=== PATIENT | male | born 1970 | race Caucasian/White ===

== ENCOUNTER 2019-09-24 09:41 | Day surgery (SDC) | payer BC ==
[2019-09-23 15:56] LABS: BASOPHILS # (AUTO) 0.1 X10'3 (0-0.2); BASOPHILS % (AUTO) 0.4 % (0-1); EOSINOPHILS # (AUTO) 0.3 X10'3 (0-0.9); EOSINOPHILS % (AUTO) 2.5 % (0-6); HEMATOCRIT 44.5 % (42.0-52.0); HEMOGLOBIN 14.7 g/dl (14.0-17.9); LYMPHOCYTES # (AUTO) 3.7 X10'3 (1.1-4.8); LYMPHOCYTES % (AUTO) 28.5 % (21-51); MEAN CORPUSCULAR HEMOGLOBIN 29.1 PG (27.0-31.0); MEAN CORPUSCULAR HGB CONC 33.1 g/dL (33.0-36.5); MEAN PLATELET VOLUME 7.6 FL (7.4-10.4); MONOCYTES # (AUTO) 1.1 X10'3 (0-0.9); MONOCYTES % (AUTO) 8.3 % (2-12); NEUTROPHILS # (AUTO) 7.9 X10'3 (1.8-7.7); NEUTROPHILS % (AUTO) 60.3 % (42-75); PLATELET COUNT 403 X10'3 (140-440); RED BLOOD COUNT 5.06 X10'6 (4.70-6.10); RED CELL DISTRIBUTION WIDTH 14.2 % (11.5-14.5); WHITE BLOOD COUNT 13.1 X10'3 (4.5-11.0)
[2019-09-23 16:04] LABS: ALBUMIN 4.5 G/DL (3.4-5.0); ANION GAP 8 (8-16); BLOOD UREA NITROGEN 18 MG/DL (7-18); BUN/CREATININE RATIO 20.2 (5.4-32.0); CALCIUM 9.3 MG/DL (8.5-10.1); CHLORIDE 103 MMOL/L (99-107); CREATININE 0.89 MG/DL (0.60-1.10); GLUCOSE 98 MG/DL (70-104); POTASSIUM 3.7 MMOL/L (3.5-5.1); SODIUM 139 MMOL/L (135-145); TOTAL CARBON DIOXIDE 28.3 MMOL/L (24-32); eGFR > 90 ML/MIN
[2019-09-23 16:08] LABS: PARTIAL THROMBOPLASTIN TIME 34 SECONDS (22-32)
[~2019-09-24] VITALS: Ht 177.8 cm; Wt 128.3 kg
[2019-09-24] VITALS (10 sets, daily range): BP systolic 107–145; BP diastolic 68–94
[2019-09-24] MEDS ORDERED: diphenhydrAMINE 25mg capsule PO PRN (10:00)
[2019-09-24] MEDS ORDERED: normal saline 1,000 ML IV SCH (10:00)
[2019-09-24] MEDS ORDERED: LORazepam 0.5 MG tablet PO PRN (10:00)
[2019-09-24] MEDS ORDERED: OXYC-511 PO (10:07)
[2019-09-24] MEDS ORDERED: LISI1TAB28 PO (10:07)
[2019-09-24] MEDS ORDERED: CARI-433 PO (10:07)
[2019-09-24] MEDS ORDERED: LIDOcaine/PRILOcaine 5gm cream TP ONE (10:30)
[2019-09-24] MEDS ORDERED: midazolam 2 mg/2 ml injection ONE (14:05)
[2019-09-24] MEDS ORDERED: iohexol 350MG/ML 100ml bottle IV ONE (14:06)
[2019-09-24] MEDS ORDERED: nitroGLYCERIN-Tridil 50MG/D5W 250 ML IV ONE (14:06)
[2019-09-24] MEDS ORDERED: heparin 1,000 UNITS/NS 500ml 500 ML ONE ×2 (14:06→14:07)
[2019-09-24] MEDS ORDERED: iohexol 350 MG/ML 50ML vial IV ONE (14:06)
[2019-09-24] MEDS ORDERED: heparin 1,000unit/ml 10ml vial 10 ML ONE (14:06)
[2019-09-24] MEDS ORDERED: fentaNYL/PF 50MCG/1 ML 2ML syringe ONE (14:06)
[2019-09-24] MEDS ORDERED: LIDOcaine 1% (10mg/ml)w/preservative injection 20ml MDV ONE (14:06)
[2019-09-24 15:30] LABS: ISTAT HGB ART 14.6 g/dl (14.0-18.0); ISTAT Hct ART 43 %PCV (42-52); ISTAT O2 SATURATION ARTERIAL 97 % (95-98); ISTAT SOURCE ART
== END 2019-09-24 20:00 | disposition home or self-care (01) ==
LOC: SSTAY O 09:41
PROVIDERS: ATTEND Internal Medicine Cardiovascular Disease
DX: I35.0 Nonrheumatic aortic (valve) stenosis (principal); I25.10 Atherosclerotic heart disease of native coronary artery without angina pectoris; I10 Essential (primary) hypertension; E78.5 Hyperlipidemia, unspecified; I34.9 Nonrheumatic mitral valve disorder, unspecified; I70.0 Atherosclerosis of aorta; Z79.899 Other long term (current) drug therapy; Z98.890 Other specified postprocedural states; F17.210 Nicotine dependence, cigarettes, uncomplicated; Z72.89 Other problems related to lifestyle; Z80.51 Family history of malignant neoplasm of kidney; Z79.01 Long term (current) use of anticoagulants
CPT/HCPCS: 36415; 76937; 80048; 82803; 85014; 85025; 85610; 85730; 93005; 93460; 93567; 99152; 99153; C1760; C1769; J1644; J2001; J2250; J3010; J7030; Q0163; Q9967; A4620; A6258; C1751; J3490

== ENCOUNTER 2020-06-16 08:53 | Day surgery (SDC) | payer BC ==
[2020-06-15 16:25] LABS: BASOPHILS # (AUTO) 0.1 X10'3 (0-0.2); EOSINOPHILS # (AUTO) 0.3 X10'3 (0-0.9); EOSINOPHILS % (AUTO) 2.6 % (0-6); HEMATOCRIT 43.6 % (42.0-52.0); HEMOGLOBIN 14.6 g/dl (14.0-17.9); LYMPHOCYTES # (AUTO) 3.6 X10'3 (1.1-4.8); LYMPHOCYTES % (AUTO) 31.3 % (21-51); MEAN CORPUSCULAR HEMOGLOBIN 29.5 PG (27.0-31.0); MEAN CORPUSCULAR HGB CONC 33.4 g/dL (33.0-36.5); MEAN CORPUSCULAR VOLUME 88.5 FL (78-98); MEAN PLATELET VOLUME 7.4 FL (7.4-10.4); MONOCYTES # (AUTO) 0.9 X10'3 (0-0.9); NEUTROPHILS # (AUTO) 6.6 X10'3 (1.8-7.7); NEUTROPHILS % (AUTO) 57.1 % (42-75); PLATELET COUNT 377 X10'3 (140-440); RED BLOOD COUNT 4.93 X10'6 (4.70-6.10); WHITE BLOOD COUNT 11.6 X10'3 (4.5-11.0)
[2020-06-15 16:33] LABS: ALBUMIN 4.6 G/DL (3.4-5.0); ANION GAP 10 (8-16); BLOOD UREA NITROGEN 17 MG/DL (7-18); BUN/CREATININE RATIO 24.3 (5.4-32.0); CALCIUM 10.4 MG/DL (8.5-10.1); CHLORIDE 102 MMOL/L (99-107); GLUCOSE 89 MG/DL (70-104); POTASSIUM 3.9 MMOL/L (3.5-5.1); SODIUM 140 MMOL/L (135-145); TOTAL CARBON DIOXIDE 28.5 MMOL/L (24-32); eGFR > 90 ML/MIN
[2020-06-15 16:36] LABS: PARTIAL THROMBOPLASTIN TIME 35 SECONDS (22-32)
[~2020-06-16] VITALS: Ht 177.8 cm; Wt 133.1 kg
[2020-06-16] VITALS (11 sets, daily range): BP systolic 99–130; BP diastolic 58–80
[~2020-06-16 08:53] MED LIST: CARI-433 PO; LISI1TAB51 PO; OXYC1TAB17 PO
[2020-06-16] MEDS ORDERED: normal saline 1,000 ML IV SCH (09:20)
[2020-06-16] MEDS ORDERED: diphenhydrAMINE 25mg capsule PO PRN (09:20)
[2020-06-16] MEDS ORDERED: LORazepam 0.5 MG tablet PO PRN (09:20)
[2020-06-16] MEDS ORDERED: LIDOcaine/PRILOcaine 5gm cream TP ONE (09:20)
[2020-06-16] MEDS ORDERED: HYDR-3972 PO (10:33)
[2020-06-16] MEDS ORDERED: SILD50TA PO (10:33)
[2020-06-16] MEDS ORDERED: midazolam 1 mg/ML 2ml injection ONE (11:00)
[2020-06-16] MEDS ORDERED: LIDOcaine 1% (10mg/ml)w/preservative injection 20ml MDV ONE (11:00)
[2020-06-16] MEDS ORDERED: verapamil 2.5 mg/ml inj IV ONE (11:00)
[2020-06-16] MEDS ORDERED: iohexol 350 MG/ML 50ML vial IV ONE (11:00)
[2020-06-16] MEDS ORDERED: iohexol 350MG/ML 100ml bottle IV ONE (11:00)
[2020-06-16] MEDS ORDERED: heparin 1,000unit/ml 10ml vial 10 ML ONE (11:00)
[2020-06-16] MEDS ORDERED: nitroGLYCERIN-Tridil 50MG/D5W 250 ML IV ONE (11:00)
[2020-06-16] MEDS ORDERED: fentaNYL/PF 50MCG/1 ML 2ML syringe ONE (11:00)
[2020-06-16] MEDS ORDERED: pneumococcal 23-VAL P-sac vacc 25 mcg/0.5ml vial IMVAC ONE (12:00)
[2020-06-16 12:03] LABS: ISTAT Hct ART 44 %PCV (42-52); ISTAT O2 SATURATION ARTERIAL 97 % (95-98); ISTAT SOURCE ART
== END 2020-06-16 17:15 | disposition home or self-care (01) ==
LOC: SSTAY O 08:53
PROVIDERS: ATTEND Internal Medicine Cardiovascular Disease
DX: R53.83 Other fatigue (principal); R06.02 Shortness of breath; I25.10 Atherosclerotic heart disease of native coronary artery without angina pectoris; I08.0 Rheumatic disorders of both mitral and aortic valves; I10 Essential (primary) hypertension; E78.5 Hyperlipidemia, unspecified; G47.30 Sleep apnea, unspecified; E66.9 Obesity, unspecified; Z68.41 Body mass index [BMI] 40.0-44.9, adult; Z79.899 Other long term (current) drug therapy; Z98.890 Other specified postprocedural states; Z87.891 Personal history of nicotine dependence; Z72.89 Other problems related to lifestyle; Z80.51 Family history of malignant neoplasm of kidney
CPT/HCPCS: 36415; 76937; 80048; 82803; 82948; 85014; 85025; 85610; 85730; 93005; 93460; 99152; 99153; C1769; C1894; J1644; J2001; J2250; J3010; J7030; Q0163; Q9967; A4620; A6258; C1751; J3490

== ENCOUNTER 2020-09-27 05:36 | Inpatient (IN) | payer BC ==
[2020-09-20 14:41] LABS: BASOPHILS # (AUTO) 0.1 X10'3 (0-0.2); BASOPHILS % (AUTO) 0.6 % (0-1); EOSINOPHILS # (AUTO) 0.3 X10'3 (0-0.9); LYMPHOCYTES # (AUTO) 3.9 X10'3 (1.1-4.8); LYMPHOCYTES % (AUTO) 37.4 % (21-51); MEAN CORPUSCULAR HEMOGLOBIN 29.3 PG (27.0-31.0); MEAN CORPUSCULAR HGB CONC 33.6 g/dL (33.0-36.5); MEAN CORPUSCULAR VOLUME 87.2 FL (78-98); MEAN PLATELET VOLUME 7.2 FL (7.4-10.4); MONOCYTES # (AUTO) 0.7 X10'3 (0-0.9); MONOCYTES % (AUTO) 7.1 % (2-12); NEUTROPHILS # (AUTO) 5.4 X10'3 (1.8-7.7); NEUTROPHILS % (AUTO) 51.9 % (42-75); PRE OP HEMATOCRIT 44.6 % (42.0-52.0); PRE OP PLATELET COUNT 403 X10'3 (140-440); RED BLOOD COUNT 5.11 X10'6 (4.70-6.10); RED CELL DISTRIBUTION WIDTH 13.5 % (11.5-14.5)
[2020-09-20 14:45] LABS: PRE OP PROTIME 10.6 SECONDS (9.0-12.0)
[2020-09-20 14:50] LABS: CLARITY,URINE CLEAR (Clear); COLOR,URINE STRAW (Yellow); GLUCOSE, URINE NEGATIVE (Neg); KETONES,URINE NEGATIVE (Neg); LEUKOCYTE ESTERASE ,URINE NEGATIVE (Neg); NITRITES, URINE NEGATIVE (Neg); OCCULT BLOOD,URINE LARGE (Neg); PROTEIN,URINE NEGATIVE (Neg); UROBILINOGEN,URINE 0.2 E.U/dL (0.2-1.0)
[2020-09-20 14:54] LABS: HEMOGLOBIN A1C 5.8 % (4.5-6.2)
[2020-09-20 14:57] LABS: ALBUMIN 4.3 G/DL (3.4-5.0); ALBUMIN/GLOBULIN RATIO 1.3 (1.1-1.5); ALKALINE PHOSPHATASE 53 IU/L (46-116); BLOOD UREA NITROGEN 14 MG/DL (7-18); BUN/CREATININE RATIO 17.7 (5.4-32.0); CALCIUM 9.2 MG/DL (8.5-10.1); CHLORIDE 102 MMOL/L (99-107); CREATININE 0.79 MG/DL (0.60-1.10); PRE OP ANION GAP 10 (8-16); PRE OP AST 54 U/L (10-37); PRE OP BILIRUB, TOTAL 0.2 MG/DL (0.0-1.0); PRE OP GLUCOSE 93 MG/DL (70-104); PRE OP POTASSIUM 4.1 MMOL/L (3.4-5.1); PRE OP SODIUM 138 MMOL/L (135-145); TOTAL CARBON DIOXIDE 26.5 MMOL/L (24-32); TOTAL PROTEIN 7.7 G/DL (6.4-8.2); eGFR > 90 ML/MIN
[2020-09-20 15:00] LABS: PRE OP ALT 94 U/L (30-65)
[2020-09-20 15:01] LABS: UA COLLECTION TYPE NON-SPECIFIED
[2020-09-20 15:04] LABS: MUCUS STRANDS FEW /LPF (Neg); SQUAMOUS EPITHELIAL CELL,UR FEW /LPF (FEW); WBC,URINE 0-4 /HPF (0-4)
[2020-09-20 15:06] LABS: BACTERIA,URINE FEW /HPF (Neg)
[2020-09-20 16:37] LABS: ABG BASE EXCESS -0.9 mmol/L (-2.0-2.0); ABG HCO3 23.6 mmol/L (22.0-26.0); ABG OXYGEN SATURATION 96.5 % (94-97); ABG PCO2 (T) 39.1 mmHg (35.0-48.0); ABG PO2 (T) 82.1 mmHg (75.0-100.0); ALLEN'S TEST POSITIVE; FCOHb 0.4 % (0.0-3.9); FMetHb 0.2 % (0.0-1.5); FO2Hb 95.9 % (94-97); TOTAL HEMOGLOBIN 15.5 G/dl (14.0-18.0)
[2020-09-27] VITALS (17 sets, daily range): BP systolic 92–158; BP diastolic 48–91
[~2020-09-27] VITALS: Ht 177.8 cm; Wt 136.9 kg
[2020-09-27] MEDS: insulin regular, human inj. 100 UNITS in normal saline 100ml IV IV SCH ×2 (05:30→12:19)
[~2020-09-27 05:36] MED LIST changes: +HYDR-3972 PO; +IODIXANOL 320 MG/ML INFUS..BTL 100ML IV ONE; +IODIXANOL 320 MG/ML INFUS..BTL 50ML IV ONE; +LORazepam 2 mg/ml vial IV PRN; +MALTODEXTRIN/FRUCTOSE 0.68 KCAL/ML LIQUID 296ML BOTTLE PO ONE; +OMEG-133 PO; -OXYC1TAB17 PO; +RED600TA PO; +SILD50TA PO; +TUMERIC PO; +UBID200C18 PO; +albuterol 2.5 MG/3 ML nebule NEB ONE; +ceFAZolin 1000mg inj ONE; +ceFAZolin inj. 3,000 MG in normal saline 100ml IV soln 100 ML IV ONE; +dextrose 50%-water 50ml dispensing syringe IV PRN; +famotidine/PF 10 mg/ml inj IV ONE; +gabapentin 400mg capsule PO ONE; +metoprolol tartrate 12.5mg (1/2 tablet) PO ONE; +mupirocin 2% nasal ointment 1gm UD NS ONE; +ringers solution, lacted 1,000 ML IV SCH; +vancomycin 1,500 MG in NS 300ml IV soln IV ONE
[2020-09-27] MEDS ORDERED: potassium Cl 2 mEq/ml inj IV ONE ×2 (07:00→08:00)
[2020-09-27] MEDS ORDERED: methylPREDNISolone sod succ 1000mg vial ONE ×2 (07:00→08:00)
[2020-09-27] MEDS ORDERED: heparin 1,000 units/ml 10ml inj ONE ×2 (07:00→08:00)
[2020-09-27] MEDS ORDERED: aminocaproic acid 250 MG/1 ML inj. ONE ×2 (07:00→08:00)
[2020-09-27] MEDS ORDERED: sodium bicarbonate (8.4%) 1 mEq/ml syringe ONE ×2 (07:00→08:00)
[2020-09-27] MEDS ORDERED: heparin 10,000 units/1 ML INJ ONE ×2 (07:00→08:00)
[2020-09-27] MEDS ORDERED: NORepinephrine 1 mg/ml inj IV ONE ×2 (07:00→08:00)
[2020-09-27] MEDS ORDERED: MAGNESIUM SULFATE 4 MEQ/ML (5gm/10ml) injection ONE (07:00)
[2020-09-27] MEDS ORDERED: LIDOcaine 2% (20 mg/ml) 5ml cardiac syringe ONE ×2 (07:00→08:00)
[2020-09-27] MEDS ORDERED: albumin (human) 25% 100 ML IV solution IV ONE ×2 (07:00→08:00)
[2020-09-27] MEDS ORDERED: calcium chloride 100 MG/1 ML inj IV ONE ×2 (07:00→08:00)
[2020-09-27] MEDS ORDERED: MIDAZolam 1 MG/ML 5ML VIAL ONE (07:01)
[2020-09-27] MEDS ORDERED: SUFENTANIL CITRATE 50 MCG/ML 2ml ampule IV ONE (07:01)
[2020-09-27] MEDS ORDERED: propofol inj 20 ML IV ONE (07:01)
[2020-09-27] MEDS ORDERED: rocuronium 10mg/ml inj IV ONE ×3 (07:02→07:19)
[2020-09-27] MEDS ORDERED: gabapentin 400mg capsule PO ONE (07:05)
[2020-09-27] MEDS ORDERED: ePHEDrine 50MG/ML INJ. ONE (07:09)
[2020-09-27] MEDS ORDERED: famotidine 20mg tablet ONE (07:18)
[2020-09-27] MEDS ORDERED: protamine sulf. 10mg/ml inj. IV ONE (07:19)
[2020-09-27] MEDS ORDERED: sevoflurane 250ml liquid IH ONE (07:19)
[2020-09-27 08:07] LABS: ABG BASE EXCESS -1.6 mmol/L (-2.0-2.0); ABG HCO3 24.5 mmol/L (22.0-26.0); ABG PCO2 46.7 mmHg (35.0-48.0); ABG PO2 94.1 mmHg (75.0-100.0); CL (ABG) 106 mmol/L (98-110); FCOHb 0.4 % (0.0-3.9); FMetHb 0.3 % (0.0-1.5); FO2Hb 96.3 % (94-97); GLUCOSE (ABG) 83 mg/dl (70-105); IONIZED CA (ABG) 1.17 mmol/L (1.10-1.43); K (ABG) 4.1 mmol/L (3.5-5.0); TOTAL HEMOGLOBIN 13.2 G/dl (14.0-18.0)
[2020-09-27 09:04] LABS: ABG BASE EXCESS -1.5 mmol/L (-2.0-2.0); ABG HCO3 25.1 mmol/L (22.0-26.0); ABG OXYGEN SATURATION 99.7 % (94-97); ABG PCO2 51.1 mmHg (35.0-48.0); ABG PO2 401.6 mmHg (75.0-100.0); CL (ABG) 106 mmol/L (98-110); FCOHb 0.3 % (0.0-3.9); FMetHb 0.3 % (0.0-1.5); FO2Hb 99.1 % (94-97); GLUCOSE (ABG) 99 mg/dl (70-105); IONIZED CA (ABG) 1.08 mmol/L (1.10-1.43); K (ABG) 5.2 mmol/L (3.5-5.0); TOTAL HEMOGLOBIN 10.8 G/dl (14.0-18.0)
[2020-09-27 09:11] LABS: ACT @ 1.70 U 332 SEC (193-297); ACT @ 2.84 U 476 SEC (260-420); BASELINE ACT 160 SEC (101-148)
[2020-09-27 09:12] LABS: ABG BASE EXCESS VENOUS -2.9 mmol/L (-2.0 - 2.0); ABG HCO3 VENOUS 23.2 mmol/L (21.0-28.0); ABG PCO2 VENOUS 45.9 mmHg (41.0-54.0); ABG PO2 VENOUS 44.2 mmHg (25.0-35.0); CL (ABG) 106 mmol/L (98-110); FCOHb VENOUS 0.2 %; FHHb VENOUS 22.2 %; FMetHb VENOUS 0.3 % (0.0 - 0.5); FO2Hb VENOUS 77.3 %; GLUCOSE (ABG) 103 mg/dl (70-105); IONIZED CA (ABG) 1.09 mmol/L (1.10-1.43); TOTAL HEMOGLOBIN 10.9 G/dl (14.0-18.0)
[2020-09-27 09:44] LABS: ABG HCO3 22.6 mmol/L (22.0-26.0); ABG OXYGEN SATURATION 99.5 % (94-97); ABG PCO2 37.9 mmHg (35.0-48.0); ABG PO2 353.3 mmHg (75.0-100.0); CL (ABG) 107 mmol/L (98-110); FCOHb 0.3 % (0.0-3.9); FMetHb 0.3 % (0.0-1.5); FO2Hb 98.9 % (94-97); GLUCOSE (ABG) 120 mg/dl (70-105); IONIZED CA (ABG) 1.08 mmol/L (1.10-1.43); K (ABG) 4.6 mmol/L (3.5-5.0); TOTAL HEMOGLOBIN 10.9 G/dl (14.0-18.0)
[2020-09-27 10:05] LABS: ABG BASE EXCESS -2.3 mmol/L (-2.0-2.0); ABG HCO3 22.1 mmol/L (22.0-26.0); ABG OXYGEN SATURATION 99.6 % (94-97); ABG PCO2 36.8 mmHg (35.0-48.0); ABG PO2 451.5 mmHg (75.0-100.0); CL (ABG) 108 mmol/L (98-110); FCOHb 0.3 % (0.0-3.9); FMetHb 0.3 % (0.0-1.5); GLUCOSE (ABG) 132 mg/dl (70-105); IONIZED CA (ABG) 1.07 mmol/L (1.10-1.43); K (ABG) 4.6 mmol/L (3.5-5.0); TOTAL HEMOGLOBIN 10.9 G/dl (14.0-18.0)
[2020-09-27 10:37] LABS: ABG BASE EXCESS -1.8 mmol/L (-2.0-2.0); ABG HCO3 24.6 mmol/L (22.0-26.0); ABG OXYGEN SATURATION 81.1 % (94-97); ABG PCO2 49.7 mmHg (35.0-48.0); CL (ABG) 108 mmol/L (98-110); FCOHb 0.5 % (0.0-3.9); FMetHb 0.3 % (0.0-1.5); FO2Hb 80.5 % (94-97); GLUCOSE (ABG) 120 mg/dl (70-105); IONIZED CA (ABG) 1.21 mmol/L (1.10-1.43); K (ABG) 4.5 mmol/L (3.5-5.0); TOTAL HEMOGLOBIN 10.5 G/dl (14.0-18.0)
[2020-09-27 10:40] LABS: ACTIVATED CLOTTING TIME 122 SEC (101-148)
[2020-09-27] MEDS ORDERED: sodium phosphate inj. 15 MMOL in dextrose 5%-water 250 ML IV PRN (11:15)
[2020-09-27] MEDS ORDERED: Insulin Reg/NS 100units/100mL 100 ML IV SCH (11:15)
[2020-09-27] MEDS ORDERED: potassium Cl 20 mEq SR tablet PO PRN (11:15)
[2020-09-27] MEDS ORDERED: pantoprazole 40 MG vial IV ONE (11:15)
[2020-09-27] MEDS ORDERED: magnesium 4gm in 100ml NS 100 ML IV PRN (11:15)
[2020-09-27] MEDS ORDERED: potassium CL 10mEq/100ml bag 100 ML IV PRN (11:15)
[2020-09-27] MEDS ORDERED: magnesium citrate 296ml oral solution PO PRN (11:15)
[2020-09-27] MEDS ORDERED: mineral oil 133ml enema RC PRN (11:15)
[2020-09-27] MEDS ORDERED: magnesium 2GM in 50ml NS 50 ML IV PRN (11:15)
[2020-09-27] MEDS ORDERED: insulin glargine (Lantus) pen - multi-dose SQ PRN (11:15)
[2020-09-27] MEDS ORDERED: dextrose 50%-water 50ml dispensing syringe IV PRN (11:15)
[2020-09-27] MEDS ORDERED: normal saline 250ml IV soln 250 ML IV PRN (11:15)
[2020-09-27] MEDS ORDERED: potassium Cl 20mEq/100mL bag 100 ML IV PRN (11:15)
[2020-09-27] MEDS ORDERED: metoclopramide 5 mg/ml inj IV PRN (11:15)
[2020-09-27] MEDS ORDERED: DOPamine 400mg/D5W 250ml 250 ML IV PRN (11:15)
[2020-09-27] MEDS ORDERED: ondansetron/PF 4mg/2ml inj IV PRN (11:15)
[2020-09-27] MEDS ORDERED: magnesium hydroxide 30ml (MOM) UD suspension PO PRN (11:15)
[2020-09-27] MEDS ORDERED: niCARDipine-NS 40mg/200ml IVPB 200 ML IV PRN (11:15)
[2020-09-27] MEDS ORDERED: acetaminophen 325mg tablet PO PRN ×2 (11:15)
[2020-09-27] MEDS ORDERED: sodium phosphate inj. 30 MMOL in dextrose 5%-water 250 ML IV PRN (11:15)
[2020-09-27] MEDS ORDERED: bisacodyl 10mg suppository rectal RC PRN (11:15)
[2020-09-27] MEDS ORDERED: potassium Cl 40MEQ/1/2NS 520ml 520 ML IV PRN (11:15)
[2020-09-27] MEDS ORDERED: Neutra Phos packet PO PRN (11:15)
[2020-09-27] MEDS ORDERED: morphine 4 MG/ML inj SYRINge IV PRN (11:15)
[2020-09-27] MEDS ORDERED: nitroGLYCERIN-Tridil 50MG/D5W 250 ML IV PRN (11:15)
[2020-09-27] MEDS ORDERED: potassium Cl 40MEQ/250ML bag 250 ML IV PRN (11:15)
[2020-09-27] MEDS ORDERED: fentaNYL/PF 50MCG/1 ML 2ML syringe ONE (11:27)
[2020-09-27 11:50] LABS: ABG BASE EXCESS -5.6 mmol/L (-2.0-2.0); ABG HCO3 21.6 mmol/L (22.0-26.0); ABG OXYGEN SATURATION 96.7 % (94-97); ABG PCO2 (T) 48.6 mmHg (35.0-48.0); ABG PO2 (T) 101.1 mmHg (75.0-100.0); FCOHb 0.5 % (0.0-3.9); FMetHb 0.3 % (0.0-1.5); FO2Hb 95.9 % (94-97); PATIENT TEMPERATURE 37.2; PEEP 5 cm H2O; RESPIRATORY RATE 14 b/min; TIDAL VOLUME 600 mL; TOTAL HEMOGLOBIN 14.9 G/dl (14.0-18.0)
[2020-09-27] MEDS: morphine 4 MG/ML inj SYRINge IV PRN ×4 (12:03→18:53)
[2020-09-27 12:20] LABS: ALANINE AMINOTRANSFERASE 56 U/L (12-78); ALBUMIN/GLOBULIN RATIO 1.5 (1.1-1.5); ALKALINE PHOSPHATASE 34 IU/L (46-116); ANION GAP 8 (8-16); ASPARTATE AMINO TRANSFERASE 58 U/L (10-37); BILIRUBIN,TOTAL 0.4 MG/DL (0.1-1.0); BLOOD UREA NITROGEN 15 MG/DL (7-18); CALCIUM 7.9 MG/DL (8.5-10.1); CHLORIDE 111 MMOL/L (99-107); CREATININE 0.88 MG/DL (0.60-1.10); GLUCOSE 145 MG/DL (70-104); MAGNESIUM 3.3 MG/DL (1.5-2.4); PARTIAL THROMBOPLASTIN TIME 26 SECONDS (22-32); PHOSPHORUS 3.7 MG/DL (2.3-4.5); SODIUM 144 MMOL/L (135-145); TOTAL CARBON DIOXIDE 24.6 MMOL/L (24-32); eGFR > 90 ML/MIN
[2020-09-27] MEDS ORDERED: nitroPRUSSIDE sod inj. 50 MG in dextrose 5%-water 248 ML IV SCH (12:20)
[2020-09-27 12:21] LABS: ABG BASE EXCESS -6.9 mmol/L (-2.0-2.0); ABG HCO3 20.8 mmol/L (22.0-26.0); ABG OXYGEN SATURATION 86.7 % (94-97); ABG PCO2 (T) 50.7 mmHg (35.0-48.0); ABG PO2 (T) 59.9 mmHg (75.0-100.0); FCOHb 0.7 % (0.0-3.9); FMetHb 0.2 % (0.0-1.5); FO2Hb 85.9 % (94-97); PATIENT TEMPERATURE 37.4; PEEP 10 cm H2O; RESPIRATORY RATE 16 b/min; TIDAL VOLUME 600 mL; TOTAL HEMOGLOBIN 15.3 G/dl (14.0-18.0)
[2020-09-27 12:21] LABS: POTASSIUM 4.6 MMOL/L (3.5-5.1)
[2020-09-27 12:22] LABS: BASOPHILS # (AUTO) 0.1 X10'3 (0-0.2); BASOPHILS % (AUTO) 0.3 % (0-1); EOSINOPHILS # (AUTO) 0.2 X10'3 (0-0.9); EOSINOPHILS % (AUTO) 0.8 % (0-6); HEMATOCRIT 42.6 % (42.0-52.0); LYMPHOCYTES # (AUTO) 2.3 X10'3 (1.1-4.8); LYMPHOCYTES % (AUTO) 10.5 % (21-51); MEAN CORPUSCULAR HEMOGLOBIN 29.2 PG (27.0-31.0); MEAN CORPUSCULAR HGB CONC 32.9 g/dL (33.0-36.5); MEAN CORPUSCULAR VOLUME 88.7 FL (78-98); MEAN PLATELET VOLUME 7.4 FL (7.4-10.4); MONOCYTES # (AUTO) 0.9 X10'3 (0-0.9); MONOCYTES % (AUTO) 4.1 % (2-12); NEUTROPHILS # (AUTO) 18.5 X10'3 (1.8-7.7); NEUTROPHILS % (AUTO) 84.3 % (42-75); PLATELET COUNT 209 X10'3 (140-440); RED CELL DISTRIBUTION WIDTH 13.8 % (11.5-14.5); WHITE BLOOD COUNT 21.9 X10'3 (4.5-11.0)
[2020-09-27] MEDS: sodium chloride 0.45% 1,000 ML IV SCH (12:30)
[2020-09-27] MEDS: nitroPRUSSIDE 0.2mg/mL in NS 250 ML IV SCH (12:39)
[2020-09-27] MEDS: gabapentin 300mg capsule PO SCH ×2 (12:45→20:04)
[2020-09-27] MEDS ORDERED: propofol 1000mg/100ml bottle 100 ML IV ONE (12:57)
[2020-09-27] MEDS: propofol 1000mg/100ml bottle 100 ML IV SCH ×3 (13:13→18:54)
--- NOTE | 2020-09-27 13:17 | NUR ---
Nutrition Consult: Pt s/p AVR and NELLY this admit; would benefit from high protein ed once stable post-op. Addendum: 09/27/20 at [address] Amended: Links added.
--- NOTE | 2020-09-27 13:19 | NUR ---
Received to room 2014 at 1130, accompanied by Jose D Moffett and PIEDAD Wallace and surgical crew. See assessment records. Renetta/PAline/CVPline and IVs noted in IV assessment records. All sites without redness or swelling. Vasoactive drugs infusing per Central Line. Bp elevated. Levo turned off per RN. Sp02 88. Pt. taken off vent and bagged. ABG obtained. Cardene started and then stopped as it could have causing low SP02. Nipride started. Propofol started as pt. is thrashing in bed and awake.
[2020-09-27] MEDS: albumin (Human) 5% 250ml 250 ML IV PRN ×3 (13:34→17:51)
[2020-09-27 14:31] LABS: ABG BASE EXCESS -8.5 mmol/L (-2.0-2.0); ABG HCO3 18.2 mmol/L (22.0-26.0); ABG OXYGEN SATURATION 99.4 % (94-97); ABG PCO2 (T) 42.2 mmHg (35.0-48.0); ABG PO2 (T) 289.1 mmHg (75.0-100.0); FCOHb 0.2 % (0.0-3.9); FMetHb 0.3 % (0.0-1.5); FO2Hb 98.9 % (94-97); PATIENT TEMPERATURE 37.4; RESPIRATORY RATE 16 b/min; TIDAL VOLUME 600 mL; TOTAL HEMOGLOBIN 13.7 G/dl (14.0-18.0)
[2020-09-27] MEDS: ceFAZolin/D5W- 1GM premix 50 ML IV SCH (15:54)
--- NOTE | 2020-09-27 16:45 | NUR ---
Pt. remains on Propofol until ready to wean off vent as he was thrashing around earlier. FI02 down to 70% from 100%. at bedside. VSS. Urine output WNL, CT output WNL.
--- NOTE | 2020-09-27 17:28 | NUR ---
Dr. Moffett called for update.
[2020-09-27 17:57] LABS: BASOPHILS % (AUTO) 0.1 % (0-1); EOSINOPHILS % (AUTO) 0.1 % (0-6); HEMATOCRIT 37.7 % (42.0-52.0); HEMOGLOBIN 12.4 g/dl (14.0-17.9); LYMPHOCYTES # (AUTO) 1.1 X10'3 (1.1-4.8); LYMPHOCYTES % (AUTO) 5.8 % (21-51); MEAN CORPUSCULAR HEMOGLOBIN 29.3 PG (27.0-31.0); MEAN CORPUSCULAR HGB CONC 32.8 g/dL (33.0-36.5); MEAN CORPUSCULAR VOLUME 89.1 FL (78-98); MEAN PLATELET VOLUME 7.3 FL (7.4-10.4); MONOCYTES # (AUTO) 0.9 X10'3 (0-0.9); MONOCYTES % (AUTO) 4.8 % (2-12); NEUTROPHILS # (AUTO) 16.1 X10'3 (1.8-7.7); NEUTROPHILS % (AUTO) 89.2 % (42-75); PLATELET COUNT 203 X10'3 (140-440); RED BLOOD COUNT 4.23 X10'6 (4.70-6.10); WHITE BLOOD COUNT 18.1 X10'3 (4.5-11.0)
--- NOTE | 2020-09-27 18:12 | NUR ---
Problems reprioritized. Patient report given, questions answered & plan of care reviewed with Jackie Antony RN.
[2020-09-27 18:14] LABS: ALBUMIN 3.4 G/DL (3.4-5.0); ANION GAP 11 (8-16); BLOOD UREA NITROGEN 19 MG/DL (7-18); BUN/CREATININE RATIO 17.9 (5.4-32.0); CALCIUM 7.4 MG/DL (8.5-10.1); CHLORIDE 112 MMOL/L (99-107); CREATININE 1.06 MG/DL (0.60-1.10); GLUCOSE 128 MG/DL (70-104); MAGNESIUM 2.9 MG/DL (1.5-2.4); PHOSPHORUS 5.1 MG/DL (2.3-4.5); POTASSIUM 5.1 MMOL/L (3.5-5.1); SODIUM 145 MMOL/L (135-145); TOTAL CARBON DIOXIDE 22.1 MMOL/L (24-32); eGFR 75 ML/MIN
--- NOTE | 2020-09-27 18:35 | NUR ---
I have received report and assumed care of pt. Pt resting in bed moments of agitation, opens eyes, moves all extremities, propofol in place titrating as needed to decrease agitation. Levophed in place to keep MAP greater then 60. Insulin drip in place for glucose control.
[2020-09-27] MEDS: NORepinephrine 8mg/ 250ml NS 250 ML IV SCH (19:49)
[2020-09-27] MEDS: sennosides/docusate sodium tablet PO SCH (20:03)
[2020-09-27] MEDS: vancomycin/NS 1 GM ADD-VANTAGE 250 ML IV SCH (20:03)
[2020-09-27] MEDS: mupirocin 2% nasal ointment 1gm UD NS SCH (20:04)
[2020-09-27] MEDS: atorvastatin 10mg tablet PO SCH (20:04)
--- NOTE | 2020-09-27 20:13 | NUR ---
spoke to Dr. Moffett regarding pt being agitated while on propofol, new orders received to titrate propofol off and start Precedex to keep a Rass 0 to -2, continue to wean ventilator in plan of extubation.
[2020-09-27] MEDS: dexmedetomidin/NS 400mcg/100ml 100 ML IV SCH (20:18)
--- NOTE | 2020-09-27 22:05 | NUR ---
HS cares complete, pt tolerated well.
[2020-09-28] VITALS (25 sets, daily range): BP systolic 95–185; BP diastolic 40–81
[2020-09-28] MEDS: ceFAZolin/D5W- 1GM premix 50 ML IV SCH ×4 (00:23→23:55)
[2020-09-28] MEDS: dexmedetomidin/NS 400mcg/100ml 100 ML IV SCH ×3 (00:23→18:23)
[2020-09-28] MEDS: morphine 4 MG/ML inj SYRINge IV PRN (00:24)
--- NOTE | 2020-09-28 01:14 | NUR ---
spontaneous breathing trial in place
[2020-09-28 02:10] LABS: ABG BASE EXCESS -4.3 mmol/L (-2.0-2.0); ABG OXYGEN SATURATION 95.6 % (94-97); ABG PCO2 (T) 30.7 mmHg (35.0-48.0); ABG PO2 (T) 78.7 mmHg (75.0-100.0); FCOHb 0.3 % (0.0-3.9); FMetHb 0.3 % (0.0-1.5); PATIENT TEMPERATURE 37.8; TIDAL VOLUME 840 mL; TOTAL HEMOGLOBIN 12.1 G/dl (14.0-18.0)
[2020-09-28 02:12] LABS: BASOPHILS % (AUTO) 0.3 % (0-1); EOSINOPHILS % (AUTO) 0 % (0-6); HEMATOCRIT 34.7 % (42.0-52.0); HEMOGLOBIN 11.6 g/dl (14.0-17.9); LYMPHOCYTES # (AUTO) 1.3 X10'3 (1.1-4.8); LYMPHOCYTES % (AUTO) 8.1 % (21-51); MEAN CORPUSCULAR HEMOGLOBIN 29.5 PG (27.0-31.0); MEAN CORPUSCULAR HGB CONC 33.4 g/dL (33.0-36.5); MEAN CORPUSCULAR VOLUME 88.2 FL (78-98); MEAN PLATELET VOLUME 7.5 FL (7.4-10.4); MONOCYTES # (AUTO) 1.4 X10'3 (0-0.9); MONOCYTES % (AUTO) 9.1 % (2-12); NEUTROPHILS # (AUTO) 12.8 X10'3 (1.8-7.7); NEUTROPHILS % (AUTO) 82.5 % (42-75); PLATELET COUNT 198 X10'3 (140-440); RED BLOOD COUNT 3.94 X10'6 (4.70-6.10); RED CELL DISTRIBUTION WIDTH 13.5 % (11.5-14.5); WHITE BLOOD COUNT 15.5 X10'3 (4.5-11.0)
[2020-09-28 02:26] LABS: PARTIAL THROMBOPLASTIN TIME 27 SECONDS (22-32)
[2020-09-28 02:28] LABS: ALANINE AMINOTRANSFERASE 51 U/L (12-78); ALBUMIN 3.5 G/DL (3.4-5.0); ALBUMIN/GLOBULIN RATIO 1.7 (1.1-1.5); ALKALINE PHOSPHATASE 39 IU/L (46-116); ANION GAP 14 (8-16); ASPARTATE AMINO TRANSFERASE 41 U/L (10-37); BILIRUBIN,TOTAL 0.4 MG/DL (0.1-1.0); BLOOD UREA NITROGEN 25 MG/DL (7-18); CALCIUM 7.5 MG/DL (8.5-10.1); CHLORIDE 110 MMOL/L (99-107); CREATININE 1.04 MG/DL (0.60-1.10); GLUCOSE 148 MG/DL (70-104); MAGNESIUM 2.5 MG/DL (1.5-2.4); PHOSPHORUS 3.7 MG/DL (2.3-4.5); POTASSIUM 4.4 MMOL/L (3.5-5.1); SODIUM 146 MMOL/L (135-145); TOTAL CARBON DIOXIDE 21.8 MMOL/L (24-32); TOTAL PROTEIN 5.6 G/DL (6.4-8.2); TRIGLYCERIDES 195 MG/DL (20-135); eGFR 77 ML/MIN
--- NOTE | 2020-09-28 04:25 | NUR ---
pt tolerated weaning paramitome, see respiratory assessment for details, pt medicated for pain as needed
[2020-09-28] MEDS: NORepinephrine 8mg/ 250ml NS 250 ML IV SCH ×2 (05:17→14:08)
[2020-09-28] MEDS: HYDROcodone/acetaminophen 10/325mg tab PO PRN ×5 (05:28→23:54)
--- NOTE | 2020-09-28 06:12 | NUR ---
Patient in room CICU 2013. I have received report from ANALIA RN and had the opportunity to ask questions and assume patient care.
--- NOTE | 2020-09-28 06:18 | NUR ---
report given to rec rn
[2020-09-28] MEDS ORDERED: glucagon, human recombinant 1mg kit SUBCUT PRN (06:45)
[2020-09-28] MEDS ORDERED: dextrose 50%-water 50ml dispensing syringe IV PRN ×2 (06:45)
[2020-09-28] MEDS ORDERED: insulin Lispro (HumaLOG) vial - multi-dose SQ SCH (06:45)
[2020-09-28] MEDS ORDERED: dextrose ORAL solution 15 GM/59 ML bottle PO PRN ×2 (06:45)
[2020-09-28] MEDS: aspirin 325mg tablet, delayed-release (Ecotrin) PO SCH (07:42)
[2020-09-28] MEDS: pantoprazole 40mg Tablet.DR PO SCH (07:42)
[2020-09-28] MEDS: vancomycin/NS 1 GM ADD-VANTAGE 250 ML IV SCH ×2 (07:42→20:57)
[2020-09-28] MEDS: metoprolol tartrate 12.5mg (1/2 tablet) PO SCH ×2 (07:43→19:21)
[2020-09-28] MEDS: gabapentin 300mg capsule PO SCH ×3 (07:43→20:57)
[2020-09-28] MEDS: sennosides/docusate sodium tablet PO SCH ×2 (07:44→20:57)
[2020-09-28] MEDS: mupirocin 2% nasal ointment 1gm UD NS SCH ×2 (07:46→20:57)
[2020-09-28] MEDS: insulin glargine (Lantus) pen - multi-dose SQ SCH (07:51)
--- NOTE | 2020-09-28 08:05 | NUR ---
Dr. Damian gave orders at bedside to remove ART and [place] lines. Art line removed
--- NOTE | 2020-09-28 09:55 | NUR ---
ZUNILDA blake by tie in hand Amy
--- NOTE | 2020-09-28 10:39 | NUR ---
patient observed using IS and flutter every hour while awake from 7- 1030
[2020-09-28] MEDS: nitroPRUSSIDE 0.2mg/mL in NS 250 ML IV SCH (13:31)
[2020-09-28] MEDS: insulin regular, human inj. 100 UNITS in normal saline 100ml IV IV SCH (14:08)
--- NOTE | 2020-09-28 18:08 | NUR ---
Problems reprioritized. Patient report given, questions answered & plan of care reviewed with ANALIA RN.
[2020-09-28] MEDS: atorvastatin 10mg tablet PO SCH (19:21)
[2020-09-29] VITALS (21 sets, daily range): BP systolic 102–146; BP diastolic 44–85
[2020-09-29] MEDS: NORepinephrine 8mg/ 250ml NS 250 ML IV SCH (01:21)
[2020-09-29] MEDS: dexmedetomidin/NS 400mcg/100ml 100 ML IV SCH (01:54)
[2020-09-29 03:10] LABS: BASOPHILS % (AUTO) 0.1 % (0-1); EOSINOPHILS % (AUTO) 0.1 % (0-6); HEMOGLOBIN 10.3 g/dl (14.0-17.9); LYMPHOCYTES # (AUTO) 2.7 X10'3 (1.1-4.8); LYMPHOCYTES % (AUTO) 13.9 % (21-51); MEAN CORPUSCULAR HEMOGLOBIN 29.5 PG (27.0-31.0); MEAN CORPUSCULAR HGB CONC 33.1 g/dL (33.0-36.5); MEAN CORPUSCULAR VOLUME 89.2 FL (78-98); MEAN PLATELET VOLUME 8.1 FL (7.4-10.4); MONOCYTES # (AUTO) 2.3 X10'3 (0-0.9); MONOCYTES % (AUTO) 11.9 % (2-12); NEUTROPHILS # (AUTO) 14.5 X10'3 (1.8-7.7); PLATELET COUNT 189 X10'3 (140-440); RED BLOOD COUNT 3.47 X10'6 (4.70-6.10); RED CELL DISTRIBUTION WIDTH 13.6 % (11.5-14.5); WHITE BLOOD COUNT 19.7 X10'3 (4.5-11.0)
[2020-09-29 03:32] LABS: ALBUMIN 3.4 G/DL (3.4-5.0); ANION GAP 7 (8-16); BLOOD UREA NITROGEN 17 MG/DL (7-18); BUN/CREATININE RATIO 21.8 (5.4-32.0); CALCIUM 7.6 MG/DL (8.5-10.1); CHLORIDE 106 MMOL/L (99-107); CREATININE 0.78 MG/DL (0.60-1.10); GLUCOSE 127 MG/DL (70-104); MAGNESIUM 2.2 MG/DL (1.5-2.4); PHOSPHORUS 2.5 MG/DL (2.3-4.5); POTASSIUM 4.2 MMOL/L (3.5-5.1); SODIUM 138 MMOL/L (135-145); TOTAL CARBON DIOXIDE 25.5 MMOL/L (24-32); eGFR > 90 ML/MIN
[2020-09-29] MEDS: HYDROcodone/acetaminophen 10/325mg tab PO PRN ×7 (04:49→20:20)
[2020-09-29] MEDS ORDERED: furosemide 40mg/4ml inj IV ONE (07:30)
[2020-09-29] MEDS: sennosides/docusate sodium tablet PO SCH ×2 (07:39→20:16)
[2020-09-29] MEDS: metoprolol tartrate 12.5mg (1/2 tablet) PO SCH ×2 (07:39→20:17)
[2020-09-29] MEDS: pantoprazole 40mg Tablet.DR PO SCH (07:39)
[2020-09-29] MEDS: aspirin 325mg tablet, delayed-release (Ecotrin) PO SCH (07:39)
[2020-09-29] MEDS: gabapentin 300mg capsule PO SCH (07:39)
[2020-09-29] MEDS: mupirocin 2% nasal ointment 1gm UD NS SCH (07:43)
[2020-09-29] MEDS: insulin glargine (Lantus) pen - multi-dose SQ SCH (08:00)
[2020-09-29] MEDS: sodium chloride 0.45% 1,000 ML IV SCH (11:15)
--- NOTE | 2020-09-29 11:37 | NUR ---
Pt seen by DIYA for written/verbal high protein/HH diet eds s/p AVR w/ TG 195 this admit. Pt is agreeable to strawberry-banana amor TUCKER for wound healing needs; notified. DIYA encouraged pt to contact dietitian's office if further questions/concerns. Addendum: 09/29/20 at [address] Amended: Links added.
[2020-09-29] MEDS: JUVEN Smoothie Arginine/Glut./Ca2+Bmb (Juven 19.3pkt) 240ml cup PO SCH ×2 (13:00→17:42)
[2020-09-29] MEDS ORDERED: HYDROcodone/acetaminophen 10/325mg tab PO ONE (17:15)
[2020-09-29] MEDS: lisinopril 5mg tablet PO SCH (20:17)
[2020-09-30] VITALS (21 sets, daily range): BP systolic 102–154; BP diastolic 50–89
[2020-09-30] MEDS: insulin regular, human inj. 100 UNITS in normal saline 100ml IV IV SCH (00:06)
[2020-09-30] MEDS: HYDROcodone/acetaminophen 10/325mg tab PO PRN ×4 (00:26→19:54)
[2020-09-30 03:57] LABS: ANION GAP 8 (8-16); BLOOD UREA NITROGEN 12 MG/DL (7-18); CALCIUM 7.8 MG/DL (8.5-10.1); CHLORIDE 106 MMOL/L (99-107); GLUCOSE 98 MG/DL (70-104); MAGNESIUM 2.3 MG/DL (1.5-2.4); PHOSPHORUS 2.1 MG/DL (2.3-4.5); SODIUM 142 MMOL/L (135-145); TOTAL CARBON DIOXIDE 28.5 MMOL/L (24-32); eGFR > 90 ML/MIN
[2020-09-30 04:00] LABS: BASOPHILS % (AUTO) 0.2 % (0-1); EOSINOPHILS # (AUTO) 0.2 X10'3 (0-0.9); EOSINOPHILS % (AUTO) 1.1 % (0-6); HEMATOCRIT 28.6 % (42.0-52.0); HEMOGLOBIN 9.6 g/dl (14.0-17.9); LYMPHOCYTES # (AUTO) 3.3 X10'3 (1.1-4.8); LYMPHOCYTES % (AUTO) 21.2 % (21-51); MEAN CORPUSCULAR HEMOGLOBIN 29.5 PG (27.0-31.0); MEAN CORPUSCULAR HGB CONC 33.7 g/dL (33.0-36.5); MEAN CORPUSCULAR VOLUME 87.5 FL (78-98); MEAN PLATELET VOLUME 7.8 FL (7.4-10.4); MONOCYTES # (AUTO) 1.6 X10'3 (0-0.9); MONOCYTES % (AUTO) 10.3 % (2-12); NEUTROPHILS # (AUTO) 10.5 X10'3 (1.8-7.7); NEUTROPHILS % (AUTO) 67.2 % (42-75); PLATELET COUNT 192 X10'3 (140-440); RED BLOOD COUNT 3.27 X10'6 (4.70-6.10); RED CELL DISTRIBUTION WIDTH 13.7 % (11.5-14.5); WHITE BLOOD COUNT 15.7 X10'3 (4.5-11.0)
--- NOTE | 2020-09-30 06:14 | NUR ---
Problems reprioritized. Patient report given, questions answered & plan of care reviewed with KARTHIK Mcnulty.
[2020-09-30] MEDS: insulin glargine (Lantus) pen - multi-dose SQ SCH (08:00)
[2020-09-30] MEDS: aspirin 325mg tablet, delayed-release (Ecotrin) PO SCH (08:10)
[2020-09-30] MEDS: pantoprazole 40mg Tablet.DR PO SCH (08:10)
[2020-09-30] MEDS: metoprolol tartrate 12.5mg (1/2 tablet) PO SCH ×2 (08:10→19:45)
[2020-09-30] MEDS: sennosides/docusate sodium tablet PO SCH ×2 (08:11→19:45)
[2020-09-30] MEDS ORDERED: furosemide 40mg/4ml inj IV ONE (09:15)
[2020-09-30] MEDS: JUVEN Smoothie Arginine/Glut./Ca2+Bmb (Juven 19.3pkt) 240ml cup PO SCH ×2 (12:30→17:30)
--- NOTE | 2020-09-30 18:15 | NUR ---
Patient in room ICU 2039. I have received report from KARTHIK Mcnulty and had the opportunity to ask questions and assume patient care.
--- NOTE | 2020-09-30 18:30 | NUR ---
Patient ambulated approximately 600 feet, tolerated well. Stand by assist.
[2020-09-30] MEDS: lisinopril 5mg tablet PO SCH (21:01)
--- NOTE | 2020-09-30 22:00 | NUR ---
Patient appears to be resting in bed, Patient with home CPAP mask in place while sleeping. Patient using call light appropriately when needing to get out of bed to use the urinal. Patient denies any dizziness, or discomfort. Patient is able to use sternal precautions well and is able to get up from bed with stand by assistance. Education on use of sternal precautions.
[2020-10-01] VITALS (16 sets, daily range): BP systolic 93–129; BP diastolic 40–78
--- NOTE | 2020-10-01 00:03 | NUR ---
Patient up to bedside commode. Assisted back to bed without incident.
[2020-10-01] MEDS: HYDROcodone/acetaminophen 10/325mg tab PO PRN ×3 (01:47→13:46)
[2020-10-01 06:08] LABS: BASOPHILS % (AUTO) 0.4 % (0-1); EOSINOPHILS # (AUTO) 0.3 X10'3 (0-0.9); EOSINOPHILS % (AUTO) 2.9 % (0-6); HEMATOCRIT 29.7 % (42.0-52.0); HEMOGLOBIN 9.9 g/dl (14.0-17.9); LYMPHOCYTES # (AUTO) 3.1 X10'3 (1.1-4.8); LYMPHOCYTES % (AUTO) 25.5 % (21-51); MEAN CORPUSCULAR HEMOGLOBIN 29.4 PG (27.0-31.0); MEAN CORPUSCULAR HGB CONC 33.3 g/dL (33.0-36.5); MEAN CORPUSCULAR VOLUME 88.3 FL (78-98); MEAN PLATELET VOLUME 7.6 FL (7.4-10.4); MONOCYTES % (AUTO) 8.1 % (2-12); NEUTROPHILS # (AUTO) 7.5 X10'3 (1.8-7.7); NEUTROPHILS % (AUTO) 63.1 % (42-75); PLATELET COUNT 267 X10'3 (140-440); RED BLOOD COUNT 3.37 X10'6 (4.70-6.10); RED CELL DISTRIBUTION WIDTH 13.5 % (11.5-14.5)
--- NOTE | 2020-10-01 06:23 | NUR ---
Problems reprioritized. Patient report given, questions answered & plan of care reviewed with KARTHIK Santos.
[2020-10-01] MEDS: pantoprazole 40mg Tablet.DR PO SCH (07:07)
[2020-10-01 07:08] LABS: ANION GAP 9 (8-16); BLOOD UREA NITROGEN 16 MG/DL (7-18); CALCIUM 8.4 MG/DL (8.5-10.1); CHLORIDE 106 MMOL/L (99-107); CREATININE 0.64 MG/DL (0.60-1.10); GLUCOSE 89 MG/DL (70-104); MAGNESIUM 2.3 MG/DL (1.5-2.4); PHOSPHORUS 4.1 MG/DL (2.3-4.5); POTASSIUM 4.3 MMOL/L (3.5-5.1); SODIUM 141 MMOL/L (135-145); TOTAL CARBON DIOXIDE 26.3 MMOL/L (24-32); eGFR > 90 ML/MIN
[2020-10-01] MEDS: metoprolol tartrate 12.5mg (1/2 tablet) PO SCH (07:59)
[2020-10-01] MEDS: aspirin 325mg tablet, delayed-release (Ecotrin) PO SCH (07:59)
[2020-10-01] MEDS: sennosides/docusate sodium tablet PO SCH (07:59)
[2020-10-01] MEDS ORDERED: LISI-790 PO (13:02)
[2020-10-01] MEDS ORDERED: ASPI-1071 PO (13:02)
--- NOTE | 2020-10-01 15:35 | NUR ---
Discharge instruction given to patient, verbalized understanding. Discharged home ambulatory with , condition stable.
== END 2020-10-01 15:45 | disposition home or self-care (01) | DRG 267 ==
LOC: PAS IN 05:36 → CICU 2S 11:57 → ICU 2S 09-28 16:46
PROVIDERS: ADMIT Thoracic Surgery (Cardiothoracic Vascular Surgery); ATTEND Thoracic Surgery (Cardiothoracic Vascular Surgery)
PROC: B24BZZ4 Ultrasonography of Heart with Aorta, Transesophageal (ICD-10-PCS; 2020-09-27)
PROC: 5A1221Z Performance of Cardiac Output, Continuous (ICD-10-PCS; 2020-09-27)
PROC: 02RF38Z Replacement of Aortic Valve with Zooplastic Tissue, Percutaneous Approach (ICD-10-PCS; principal; 2020-09-27 07:19)
PROC: 5A09357 Assistance with Respiratory Ventilation, Less than 24 Consecutive Hours, Continuous Positive Airway Pressure (ICD-10-PCS; 2020-09-30)
DX: I35.0 Nonrheumatic aortic (valve) stenosis (principal); Z68.41 Body mass index [BMI] 40.0-44.9, adult; E66.01 Morbid (severe) obesity due to excess calories; E78.5 Hyperlipidemia, unspecified; F12.90 Cannabis use, unspecified, uncomplicated; G71.00 Muscular dystrophy, unspecified; I10 Essential (primary) hypertension; I25.10 Atherosclerotic heart disease of native coronary artery without angina pectoris; Z79.899 Other long term (current) drug therapy; Z80.51 Family history of malignant neoplasm of kidney; Z87.891 Personal history of nicotine dependence; Z95.3 Presence of xenogenic heart valve
CPT/HCPCS: 0232T; 93312; 93325; Z7506; Z7508; 36415; 36600; 71045; 71046; 71275; 74174; 80048; 80053; 81001; 82330; 82435; 82803; 82947; 82948; 83036; 83735; 84100; 84132; 84295; 84478; 85018; 85025; 85347; 85384; 85610; 85730; 86885; 86900; 86901; 86920; 87081; 93005; 93880; 94002; 94003; 94010; 94668; 94760; 97116; 97161; 97530; A4618; A6258; A6402; A6449; A7000; A7048; C1713; C1751; C9113; G0378; J0690; J1644; J1815; J1940; J2060; J2150; J2250; J2270; J2704; J2720; J2930; J3010; J3370; J3475; J3480; J3490; J7030; J7040; J7050; J7120; P9045; P9047; Q9967